=== PATIENT | female | born 1995 | race African-American/Black ===

== ENCOUNTER 2022-09-18 17:58 | Emergency (ER) | payer OTHER ==
[2022-09-18 18:19] VITALS: BP 150/91
[2022-09-18 18:41] LABS: BASOPHILS # (AUTO) 0.1 10^3/uL (0.0-0.1); BASOPHILS % (AUTO) 0.5 %; EOSINOPHILS # (AUTO) 0.2 10^3/uL (0.0-0.7); EOSINOPHILS % (AUTO) 1.7 %; HCT - HEMATOCRIT 42.6 % (37.0-47.0); HGB - HEMOGLOBIN 13.2 g/dL (12.0-16.0); LYMPHOCYTES # (AUTO) 1.9 10^3/uL (1.5-3.5); LYMPHOCYTES % (AUTO) 20.5 %; MEAN CORPUSCULAR HEMOGLOBIN 25.9 pg (27.0-31.0); MEAN CORPUSCULAR VOLUME 83.7 fL (81.0-99.0); MEAN PLATELET VOLUME 11.1 fL (7.9-10.8); MONOCYTES # (AUTO) 0.7 10^3/uL (0.0-1.0); MONOCYTES % (AUTO) 7.1 %; NEUTROPHILS # (AUTO) 6.4 10^3/uL (1.5-6.6); NEUTROPHILS % (AUTO) 69.9 %; PLT - PLATELET COUNT 313 10^3/uL (130-450); RED BLOOD COUNT 5.09 10^6/uL (4.20-5.40); RED CELL DISTRIBUTION WIDTH 12.5 % (12.0-15.0); WHITE BLOOD COUNT 9.2 x10^3/uL (4.8-10.8)
[2022-09-18 18:58] LABS: ACETAMINOPHEN < 10 ug/mL (10-30); ALKALINE PHOSPHATASE 99 IU/L (42-121); ALT ALANINE AMINOTRANSFERASE 13 IU/L (10-60); AST ASPARTATE AMINOTRANSFERASE 14 IU/L (10-42); BILIRUBIN,TOTAL 0.8 mg/dL (0.2-1.0); BUN - BLOOD UREA NITROGEN 6 mg/dL (6-20); CALCIUM 9.3 mg/dL (8.5-10.3); CARBON DIOXIDE - CO2 24 mmol/L (21-32); CHLORIDE 106 mmol/L (101-111); CREATININE 0.8 mg/dL (0.4-1.0); ETOH - ETHANOL < 5.0 mg/dL; GFR - MDRD 106 (>89); GLUCOSE 94 mg/dL (70-100); LIPASE 51 U/L (22-51); POTASSIUM 3.9 mmol/L (3.5-5.0); SALICYLATE < 6.0 mg/dL; SODIUM 140 mmol/L (135-145); TOTAL PROTEIN 7.9 g/dL (6.7-8.2)
[2022-09-18 19:04] LABS: MUDS CUTOFF CONCENTRATIONS CUTOFF CONC BELOW:
[2022-09-18 19:13] LABS: BILIRUBIN,URINE NEGATIVE (NEGATIVE); GLUCOSE, URINE (UA) NEGATIVE (NEGATIVE); KETONES,URINE (UA) NEGATIVE (NEGATIVE); LEUKOCYTE ESTERASE, URINE MODERATE (NEGATIVE); NITRITE,URINE NEGATIVE (NEGATIVE); OCCULT BLOOD,URINE NEGATIVE (NEGATIVE); PROTEIN,URINE NEGATIVE (NEGATIVE); UROBILINOGEN,URINE 2 E.U./dL (NORMAL)
[2022-09-18 19:15] LABS: CLARITY,URINE CLOUDY (CLEAR); HCG UR QUAL NEGATIVE
--- NOTE | 2022-09-18 19:16 | ED Physician Documentation ---
History of Present Illness - Stated complaint Stated Complaint: SI - Chief complaint Chief Complaint: MHE - History obtained from History obtained from: Patient - Additonal information Additional information: 26-year-old woman with longstanding anxiety and depression. About to run out of her duloxetine and having a lot of stress because of inability to obtain counseling for her psychiatric issues. She has fleeting suicidal ideation with multiple plans. PD PAST MEDICAL HISTORY - Present Medications Home Medications: Ambulatory Orders Medication Instructions Recorded Confirmed DULoxetine [Cymbalta] 2 tab PO DAILY #60 tab 09/18/22 Duloxetine HCl [Cymbalta] 120 mg PO DAILY 09/18/22 09/18/22 buPROPion [Wellbutrin Xl] 150 mg ORAL DAILY 09/18/22 09/18/22 hydrOXYzine HCL [Hydroxyzine HCl] 25 mg PO DAILY 09/18/22 09/18/22 - Allergies Allergies/Adverse Reactions: Allergies Allergy/AdvReac Type Severity Reaction Status Date / Time grass pollen Allergy Itching Verified 09/18/22 18:12 PD ED PE NORMAL - Vitals Vital signs reviewed: Yes - General General: Alert and oriented X 3, No acute distress - Neck Neck: Supple, no meningeal sign, No bony TTP - Back Back: No CVA TTP, No spinal TTP - Neuro Neuro: Alert and oriented X 3, Normal speech Results - Vitals Vitals: Vital Signs - 24 hr 09/18/22 18:04 Temperature 36.3 C L Heart Rate 118 H Respiratory 16 Rate Blood Pressure 150/91 H O2 Saturation 97 Oxygen O2 Source Room air - Labs Labs: Laboratory Tests 09/18/22 09/18/22 09/18/22 17:36 17:36 17:36 WBC 9.2 RBC 5.09 Hgb 13.2 Hct 42.6 MCV 83.7 MCH 25.9 L MCHC 31.0 L RDW 12.5 Plt Count 313 MPV 11.1 H Neut # (Auto) 6.4 Lymph # (Auto) 1.9 Butler # (Auto) 0.7 Eos # (Auto) 0.2 Baso # (Auto) 0.1 Absolute Nucleated RBC 0.00 Nucleated RBC % 0.0 Sodium 140 Potassium 3.9 Chloride 106 Carbon Dioxide 24 Anion Gap 10.0 BUN 6 Creatinine 0.8 Estimated GFR (MDRD) 106 Glucose 94 Calcium 9.3 Total Bilirubin 0.8 AST 14 ALT 13 Alkaline Phosphatase 99 Total Protein 7.9 Albumin 4.0 Globulin 3.9 Albumin/Globulin Ratio 1.0 Lipase 51 TSH 1.96 Salicylates < 6.0 Acetaminophen < 10 L Ethyl Alcohol < 5.0 PD Medical Decision Making - ED course ED course: We discussed options including telepsychiatric consultation, ketamine, boarding in the emergency department for inpatient admission versus social work consultation. She feels safe going home and would like to just return in the morning to see the social service assistant. She contracts for safety and her will keep an eye on her. He is at the bedside. Departure - Departure Disposition: Home, Self Care Clinical Impression: Depressive disorder Condition: Good Record reviewed to determine appropriate education?: Yes Instructions: ED Depression Prescriptions: DULoxetine [Cymbalta] 2 tab PO DAILY #60 tab Comments: Return tomorrow morning for evaluation by our social service assistant for follow-up. Return sooner for new or worsening symptoms or if you are unsafe. Forms: Activity restrictions
[2022-09-18 19:20] LABS: BACTERIA,URINE Many /HPF (None Seen); MUCUS,URINE Marked Strands; RBC,URINE 0-5 /HPF (0-5); SQUAMOUS EPITHELIAL CELL,UR MANY Squamous (<= Few); WBC,URINE >25 /HPF (0-5)
[2022-09-18 19:24] LABS: AMPHETAMINE SCREEN,URINE NEGATIVE (NEGATIVE); BARBITURATE SCREEN,UR NEGATIVE (NEGATIVE); BENZODIAZEPINES SCREEN, URINE NEGATIVE (NEGATIVE); COCAINE SCREEN URINE NEGATIVE (NEGATIVE); METHADONE SCREEN, URINE NEGATIVE (NEGATIVE); METHAMPHETAMINES SCREEN, URINE NEGATIVE (NEGATIVE); OPIATE SCREEN, URINE NEGATIVE (NEGATIVE); OXYCODONE SCREEN, URINE NEGATIVE (NEGATIVE); PROPOXYPHENE SCREEN, URINE NEGATIVE (NEGATIVE); THC CANNABINOID SCREEN, URINE NEGATIVE (NEGATIVE); TRICYCLIC ANTIDEPRESSANT,URINE NEGATIVE (NEGATIVE)
== END 2022-09-18 19:26 | disposition home or self-care (01) ==
LOC: ED 17:58
DX: F32.A Depression, unspecified (principal); R45.851 Suicidal ideations; F41.9 Anxiety disorder, unspecified
CPT/HCPCS: 36415; 80053; 80306; 80307; 80320; 80329; 81001; 81003; 81025; 83690; 84443; 85025; 87086; 99283; 99284